=== PATIENT | male | born 1975 | race Caucasian/White ===

== ENCOUNTER 2017-12-07 09:53 | Emergency (ER) | payer OTHER ==
--- NOTE | 2017-12-07 10:25 | EDM.PDOCBH ---
ED HPI GENERAL MEDICAL PROBLEM - General Chief Complaint: Behavioral/Psych Stated Complaint: POSSIBLE PANIC ATTACK Time Seen by Provider: 12/07/17 10:24 Source of Information: Reports: Patient History Limitations: Reports: No Limitations - History of Present Illness INITIAL COMMENTS - FREE TEXT/NARRATIVE: HISTORY AND PHYSICAL: []42-year-old male presenting with concerns over increased depression and he feels shaky inside History of Present Illness: []Patient 3 years ago stopped his antidepressant medication in the last few weeks his is they've wanted a divorce concerned about seeing his children Last time he needed antidepressants was when he was working in [place]. He denies any suicidal ideations States he has no one here he spends a lot of time at the gym. Denies any use of illegal drugs Main complaint is that he's been unable to sleep for several days Review of Systems: As per history of present illness and below otherwise all systems reviewed and negative. Past medical history: As per history of present illness and as reviewed below otherwise noncontributory. Surgical history: As per history of present illness and as reviewed below otherwise noncontributory. Social history: No reported history of drug or alcohol abuse. Family history: As per history of present illness and as reviewed below otherwise noncontributory. Physical exam: Alert gentleman who has fair eye contact. A little shaky when speaking. HEENT: Atraumatic, normocehpalic, pupils reactive, negative for conjunctival pallor or scleral icterus, mucous membranes moist, throat clear, neck supple, nontender, trachea midline. Lungs: Clear to auscultation, breath sounds equal bilaterally, chest non tender. Heart: S1S2, regular, negative for clicks, rubs, or JVD. Abdomen: Soft, nondistended, nontender. Negative for masses or hepatossplenmegaly. Negative for costovertebral tenderness. Pelvis: Stable nontender. Genitourinary: Deferred. Rectal: Deferred Extremities: Atraumatic, negative for cords or calf pain. Neurovascular unremarkable. Neuro: Awake, alert, oriented. Cranial nerves II through XII unremarkable. Cerebellum unremarkable. Motor and sensory unremarkable throughout. Exam nonfocal. Diagnostics: [] Therapeutics: []Ativan Impression: []Depression Plan: []Discharge Referral to Caryn Thompson NP Remeron 15 mg Definitive disposition and diagnosis as appropriate pending reevaluation and review of above. Onset: Gradual Duration: Day(s): - Related Data Allergies Allergy/AdvReac Type Severity Reaction Status Date / Time No Known Allergies Allergy Verified 12/07/17 10:06 Home Meds: Home Meds Mirtazapine [Remeron] 15 mg PO BEDTIME #30 tab.dis 12/07/17 [Rx] Past Medical History - Past Health History Medical/Surgical History: Denies Medical/Surgical History - Infectious Disease History Infectious Disease History: Reports: None Social & Family History - Family History Family Medical History: Noncontributory - Tobacco Use Smoking Status *Q: Never Smoker - Alcohol Use Days Per Week of Alcohol Use: 3 Number of Drinks Per Day: 5 Total Drinks Per Week: 15 - Recreational Drug Use Recreational Drug Use: No ED ROS GENERAL - Review of Systems Review Of Systems: ROS reveals no pertinent complaints other than HPI. ED EXAM, BEHAVIORAL HEALTH - Physical Exam Exam: See Below (See dictation) COURSE, BEHAVIORAL HEALTH COMP - Course Vital Signs: Last Vital Signs Temp 36.6 C 12/07/17 10:07 Pulse 95 12/07/17 10:07 Resp 20 12/07/17 10:07 BP 184/97 H 12/07/17 10:07 Pulse Ox 97 12/07/17 10:07 Departure - Departure Time of Disposition: 10:36 Disposition: Home, Self-Care 01 Condition: Good Clinical Impression: Depressive disorder - Discharge Information Prescriptions: Mirtazapine [Remeron] 15 mg PO BEDTIME #30 tab.dis Referrals: PCP,None [Primary Care Provider] - Forms: ED Department Discharge Additional Instructions: The following information is given to patients seen in the emergency department who are being discharged to home. This information is to outline your options for follow-up care. We provide all patients seen in our emergency department with a follow-up referral. The need for follow-up, as well as the timing and circumstances, are variable depending upon the specifics of your emergency department visit. If you don't have a primary care physician on staff, we will provide you with a referral. We always advise you to contact your personal physician following an emergency department visit to inform them of the circumstance of the visit and for follow-up with them and/or the need for any referrals to a consulting specialist. The emergency department will also refer you to a specialist when appropriate. This referral assures that you have the opportunity for followup care with a specialist. All of these measure are taken in an effort to provide you with optimal care, which includes your followup. Under all circumstances we always encourage you to contact your private physician who remains a resource for coordinating your care. When calling for followup care, please make the office aware that this follow-up is from your recent emergency room visit. If for any reason you are refused follow-up, please contact the [facility] emergency department at and asked to speak to the emergency department charge nurse. We have notified [facility] with Barb Smith NP They will contact you with a date and time and see how this medication has been helping you and discuss that with her Return if you have any suicidal thoughts increasing depression prior to your visit
[2017-12-07] MEDS ORDERED: LORazepam 0.5 MG Tab PO ONE (10:40)
== END 2017-12-07 11:10 | disposition home or self-care (01) ==
LOC: MW.ED 09:53
DX: F32.9 Major depressive disorder, single episode, unspecified (principal)
CPT/HCPCS: 99283

== ENCOUNTER 2020-01-10 15:25 | Emergency (ER) | payer OTHER ==
[2020-01-10] MEDS ORDERED: Sodium Chloride 0.9% 10 ML Syringe FLUSH PRN (15:29)
[2020-01-10] MEDS ORDERED: Sodium Chloride 0.9% 2.5 ML Syringe FLUSH PRN (15:29)
--- NOTE | 2020-01-10 15:30 | EDM.PDOC ---
ED HPI GENERAL MEDICAL PROBLEM - General Chief Complaint: Chest Pain Stated Complaint: CHEST PAIN Time Seen by Provider: 01/10/20 15:27 Source of Information: Reports: Patient History Limitations: Reports: No Limitations - History of Present Illness INITIAL COMMENTS - FREE TEXT/NARRATIVE: 43-year-old male with a past medical history of depression presenting with chest pain and shortness of breath. Patient reports a several month history of intermittent substernal chest pain and shortness of breath. Yesterday afternoon, the patient was working out and began experiencing worsening substernal chest pain radiating to left axilla accompanied by dyspnea. Nothing makes it better or worse, pain is been constant since the onset yesterday afternoon, approximately 23 hours ago. Described as "pressure". Similar to prior episodes of chest pain over the past few months but more intense than usual. Denies any fever, cough, hemoptysis, nausea, vomiting, diaphoresis, leg swelli ng. No history of VTE, hemoptysis, leg swelling or pain, malignancy, recent long travel or immobilization or surgery. No self treatment prior to arrival. ROS: A 10-point review of systems was negative, except as noted in the HPI (or in the ROS section of this note). Past medical history: Reviewed, no additional pertinent history. Surgical history: Reviewed in system, no additional pertinent history. Social history: Reviewed in system, no additional pertinent history. Family history: Reviewed in system, no additional pertinent history. PHYSICAL EXAM Vital signs reviewed. Nursing notes reviewed. Constitutional: Awake, alert, non-distressed. Head: Normocephalic, atraumatic. Eyes: EOMI, conjunctiva normal, no discharge, no scleral icterus. Ears, Nose, Throat: External ears and nose normal, moist oral mucosa. Cardiovascular: Tachycardic, 2+ radial pulses bilaterally, 2+ femoral pulses bilaterally, capillary refill less than 2 seconds. No lower extremity edema. All extremities warm and well-perfused. RRR no MRG Pulmonary: normal work of breathing, no accessory muscle use. CTA BL Abdomen/GI: Soft, nontender, nondistended, no guarding or rigidity, no masses. Musculoskeletal: No deformities. Integumentary: Appropriate color for ethnicity, warm, dry, no pallor or jaundice, no rash. Neurologic: Alert, answering questions appropriately, normal speech, no facial droop, moving all extremities well. Psychiatric: Appropriate mood and affect, normal thought process. chest Pain Score (Numeric/FACES): 7 - Related Data Allergies Allergy/AdvReac Type Severity Reaction Status Date / Time No Known Allergies Allergy Verified 01/10/20 15:43 Home Meds: Home Meds LORazepam [Ativan] 0.5 mg PO BEDTIME 01/10/20 [History] buPROPion HCL [Wellbutrin Xl] 300 mg PO DAILY 01/10/20 [History] Past Medical History - Past Health History Medical/Surgical History: Denies Medical/Surgical History - Infectious Disease History Infectious Disease History: Reports: None Social & Family History - Family History Family Medical History: Noncontributory ED ROS GENERAL - Review of Systems Review Of Systems: See Below ED EXAM, GENERAL - Physical Exam Exam: See Below EKG INTERPRETATION EKG Interpretation Comments: 12-Lead ECG Interpretation Acquired: 3:22 PM Rhythm: Sinus tachycardia Rate: 103/min [place]: Normal Intervals: Incomplete right bundle branch block Ectopy: None ST Segments/T-Waves: ST segment depression in leads II, 3. T wave inversions in leads II, 3, aVF, V4 through 6. Interpretation: Abnormal ECG. Left atrial enlargement. Incomplete right bundle branch block. Course - Vital Signs Text/Narrative:: Differential diagnosis includes but is not limited to: ACS, pulmonary embolism, aortic dissection, acute systolic heart failure, pneumonia, pneumothorax, pericardial effusion, pleural effusion, pericarditis, endocarditis, esophageal rupture, GERD, drug-induced chest pain, chest wall pain, and many others. CBC shows a leukocytosis and erythrocytosis. D-dimer is elevated at 1.13. Creatinine elevated at 1.6. Troponin negative. Electrolytes look reassuring. Chest x-ray is clear. Given chest pain, hypoxia, and elevated d-dimer, we obtained a CT pulmonary angiogram study which showed probable subsegmental atelectasis within the dependent portions of both posterior lungs, no evidence of pulmonary embolism, and no other acute findings. We did ambulate the patient and and room air saturations were 94 to 95%. He complained of worsening lightheadedness while ambulatory. We repeated a twelve-lead EKG which still appears fairly abnormal, with persistent ST segment deviation in 2, aVF, and T wave inversions in leads II, III, aVF, and V4 through V6. Although the patient has negative coronary biomarker testing. HEART score is 2. Patient was given full dose aspirin followed by a GI cocktail. He has negative cardiac biomarker testing with 23 hours of symptoms but I am concerned by the fact that he continues to complain of lightheadedness and shortness of breath an d his low to normal pulse oximetry readings and his abnormal ECG. Low suspicion for aortic dissection, no evidence of congestive heart failure. Pulmonary imaging is not concerning for pneumonia, no evidence of a cardiac murmur by auscultation, no infectious symptoms, low suspicion for endocarditis. Low suspicion for esophageal rupture. At 6:30 PM I was informed by the patient's nurse the patient wants to sign out AGAINST MEDICAL ADVICE. I did have a [id number]-helt discussion with the patient. He wants to go home and does not want to stay overnight in the hospital on observation status. I reiterated I did recommend that he stay because he has a markedly abnormal EKG and is still complaining of feeling lightheaded, having chest pain, and shortness of breath. I did discuss the plan to trend his troponins, likely have an echocardiogram, and potential expedited follow-up with cardiology. The patient still wants to go home. I explained the risks of worsening of symptoms, morbidity, or even . The patient understands and is accepting of the risks and still wants to go home AGAINST MEDICAL ADVICE. He understands that he can come back to the ER at any point even if he just changes his mind and I encouraged him to come back if any symptoms worsen or if he develops any new concerning symptoms. We will facilitate a referral to cardiology clinic. All questions were answered prior to discharge. Last Recorded V/S: Last Vital Signs Temp 36.2 C 01/10/20 15:26 Pulse 93 01/10/20 17:35 Resp 17 01/10/20 17:10 BP 148/51 H 01/10/20 17:35 Pulse Ox 96 01/10/20 17:35 - Orders/Labs/Meds Orders: Active Orders 24 hr Category Date Time Status Cardiac Monitoring [RC] . DIRECTED Care 01/10/20 15:29 Active EKG 12 Lead [EKG Documentation Completion] [RC] STAT Care 01/10/20 16:02 Active Pulse Oximetry [RC] ASDIRECTED Care 01/10/20 15:29 Active CORONAVIRUS COVID-19 PCR PHL Stat Lab 01/10/20 18:31 Ordered TROPONIN I [CHEM] Stat Lab 01/10/20 18:37 Received Sodium Chloride 0.9% [Saline Flush] Med 01/10/20 15:29 Active 10 ml FLUSH ASDIRECTED PRN Sodium Chloride 0.9% [Saline Flush] Med 01/10/20 15:29 Active 2.5 ml FLUSH ASDIRECTED PRN Saline Lock Insert [OM.PC] Stat Oth 01/10/20 15:30 Ordered Medication Orders Sodium Chloride (Saline Flush) 2.5 ml FLUSH ASDIRECTED PRN PRN Reason: Keep Vein Open Sodium Chloride (Saline Flush) 10 ml FLUSH ASDIRECTED PRN PRN Reason: Keep Vein Open Labs: Laboratory Tests 01/10/20 01/10/20 01/10/20 Range/Units 15:39 15:39 15:39 WBC 20.68 H (4.0-11.0) K/uL RBC 6.04 H (4.50-5.90) M/uL Hgb 18.3 H (13.0-17.0) g/dL Hct 54.2 H (38.0-50.0) % MCV 89.7 (80.0-98.0) fL MCH 30.3 (27.0-32.0) pg MCHC 33.8 (31.0-37.0) g/dL RDW Std Deviation 53.6 (28.0-62.0) fl RDW Coeff of Edwin 16 H (11.0-15.0) % Plt Count 283 (150-400) K/uL MPV 10.20 (7.40-12.00) fL Neut % (Auto) 76.9 (48.0-80.0) % Lymph % (Auto) 11.9 L (16.0-40.0) % [place] % (Auto) 10.4 (0.0-15.0) % Eos % (Auto) 0.7 (0.0-7.0) % Baso % (Auto) 0.1 (0.0-1.5) % Neut # (Auto) 15.9 H (1.4-5.7) K/uL Lymph # (Auto) 2.5 H (0.6-2.4) K/uL [place] # (Auto) 2.2 H (0.0-0.8) K/uL Eos # (Auto) 0.2 (0.0-0.7) K/uL Baso # (Auto) 0.0 (0.0-0.1) K/uL Nucleated RBC % 0.0 /100WBC Nucleated RBCs # 0 K/uL D-Dimer, Quantitative 1.13 H (0.0-0.50) mg/L FEU Sodium 135 L (136-148) mmol/L Potassium 4.6 (3.5-5.1) mmol/L Chloride 101 (98-107) mmol/L Carbon Dioxide 26.9 (21.0-32.0) mmol/L BUN 12 (7.0-18.0) mg/dL Creatinine 1.6 H (0.8-1.3) mg/dL Est Cr Clr Drug Dosing 61.47 mL/min Estimated GFR (MDRD) 47.4 ml/min Glucose 85 (74-106) mg/dL Calcium 9.6 (8.5-10.1) mg/dL Total Bilirubin 0.6 (0.2-1.0) mg/dL AST 31 (15-37) IU/L ALT 41 (14-63) IU/L Alkaline Phosphatase 49 (46-116) U/L Troponin I < 0.050 (0.000-0.056) ng/mL Total Protein 7.9 (6.4-8.2) g/dL Albumin 3.3 L (3.4-5.0) g/dL Globulin 4.6 H (2.6-4.0) g/dL Albumin/Globulin Ratio 0.7 L (0.9-1.6) Meds: Medications Generic Name Dose Route Start Last Admin Trade Name Freq PRN Reason Stop Dose Admin Sodium Chloride 2.5 ml 01/10/20 15:29 Saline Flush FLUSH ASDIRECTED PRN Keep Vein Open Sodium Chloride 10 ml 01/10/20 15:29 Saline Flush FLUSH ASDIRECTED PRN Keep Vein Open Discontinued Medications Generic Name Dose Route Start Last Admin Trade Name Damien PRN Reason Stop Dose Admin Aspirin 325 mg 01/10/20 21:00 Aspirin PO BEDTIME JEREMIAH Aspirin 325 mg 01/10/20 15:46 01/10/20 15:49 Aspirin PO 01/10/20 15:47 325 mg ONETIME STA Administration Al Hydroxide/Mg Hydroxide 15 0 ml 01/10/20 18:05 01/10/20 18:37 ml/ Lidocaine HCl 5 ml PO 01/10/20 18:06 1 each ONETIME ONE Administration Lactated Ringer's 1,000 mls @ 999 mls/hr 01/10/20 15:46 01/10/20 15:49 Ringers, Lactated IV 01/10/20 16:46 999 mls/hr .BOLUS ONE Administration Departure - Departure Time of Disposition: 18:31 Disposition: Against Medical Advice 07 Condition: Good Clinical Impression: Atypical chest pain, Abnormal ECG, Lightheadedness Dyspnea Qualifiers: Dyspnea type: unspecified Qualified Code(s): R06.00 - Dyspnea, unspecified Referrals: [facility] [Provider Group] - 3 Days (For follow-up of chest pain and abnormal EKG.) Forms: ED Department Discharge Additional Instructions: We did recommend hospitalization overnight given that you have an abnormal electrocardiogram and ongoing chest pain, shortness of breath, and lightheadedness. At this point you are choosing to leave the hospital AGAINST MEDICAL ADVICE. You understand that your symptoms could worsen or you could . You should come back to the emergency department immediately if you are feeling worse. You can always come back to the emergency department even if you change your mind and want to stay in the hospital overnight. I would like for you to follow-up with the cardiology clinic in the next few days for reevaluation and evaluation of your abnormal EKG. The following information is given to patients seen in the emergency department who are being discharged. This information is to outline your options for follow-up care. We provide all patients seen in our emergency department with a follow-up referral. The need for follow-up, as well as the timing and circumstances, are variable depending upon the specifics of your emergency department visit. If you don't have a primary care physician on staff, we will provide you with a referral. We always advise you to contact your personal physician following an emergency department visit to inform them of the circumstance of the visit and for follow-up with them and/or the need for any referrals to a consulting specialist. The emergency department will also refer you to a specialist when appropriate. This referral assures that you have the opportunity for follow-up care with a specialist. All of these measure are taken in an effort to provide you with optimal care, which includes your follow-up. Under all circumstances we always encourage you to contact your private physician who remains a resource for coordinating your care. When calling for follow-up care, please make the office aware that this follow-up is from your recent emergency room visit. If for any reason you are refused follow-up, please contact the [facility] Emergency Department at and asked to speak to the emergency department charge nurse. If you do not have a primary care physician that is caring for you, you can contact these clinics below to set up an appointment to establish care: [facility] - Primary Care [address] [place], [place] [id number] [facility] [address] [place] [address] Sepsis Event Note (ED) - Focused Exam Vital Signs: Vital Signs Temp Pulse Resp BP Pulse Ox 01/10/20 17:35 93 148/51 H 96 01/10/20 17:10 95 17 96 01/10/20 15:26 36.2 C 106 H 18 156/92 H 94 L - My Orders Last 24 Hours: My Active Orders 01/10/20 15:29 Cardiac Monitoring [RC] . DIRECTED Pulse Oximetry [RC] ASDIRECTED Sodium Chloride 0.9% [Saline Flush] 10 ml FLUSH ASDIRECTED PRN Sodium Chloride 0.9% [Saline Flush] 2.5 ml FLUSH ASDIRECTED PRN 01/10/20 15:30 Saline Lock Insert [OM.PC] Stat 01/10/20 16:02 EKG 12 Lead [EKG Documentation Completion] [RC] STAT 01/10/20 18:31 CORONAVIRUS COVID-19 PCR PHL Stat 01/10/20 18:37 TROPONIN I [CHEM] Stat - Assessment/Plan Last 24 Hours: My Active Orders 01/10/20 15:29 Cardiac Monitoring [RC] . DIRECTED Pulse Oximetry [RC] ASDIRECTED Sodium Chloride 0.9% [Saline Flush] 10 ml FLUSH ASDIRECTED PRN Sodium Chloride 0.9% [Saline Flush] 2.5 ml FLUSH ASDIRECTED PRN 01/10/20 15:30 Saline Lock Insert [OM.PC] Stat 01/10/20 16:02 EKG 12 Lead [EKG Documentation Completion] [RC] STAT 01/10/20 18:31 CORONAVIRUS COVID-19 PCR PHL Stat 01/10/20 18:37 TROPONIN I [CHEM] Stat
[2020-01-10] MEDS ORDERED: Aspirin 325 MG Tab PO STA (15:46)
[2020-01-10] MEDS ORDERED: Lactated Ringers 1,000 ML IV ONE (15:46)
[2020-01-10 16:12] LABS: BLOOD UREA NITROGEN,BUN 12 mg/dL (7.0-18.0); CARBON DIOXIDE,CO2 26.9 mmol/L (21.0-32.0); CHLORIDE,CL 101 mmol/L (98-107); GLUCOSE RANDOM 85 mg/dL (74-106); POTASSIUM,K 4.6 mmol/L (3.5-5.1); SODIUM,NA 135 mmol/L (136-148)
--- NOTE | 2020-01-10 17:03 | CR ---
Chest: AP view of the chest was obtained. Comparison: No prior chest x-ray is available. Heart size and mediastinum are normal. Lungs are clear with no acute parenchymal change. Old healed right clavicle fracture appears to be present. Bony structures are grossly intact. Impression: 1. Nothing acute is seen on AP chest x-ray. Diagnostic code #2 This report was dictated in MDT
--- NOTE | 2020-01-10 17:12 | CT ---
CT chest Technique: Multiple axial sections were obtained from above the lung apices inferiorly through the lung bases. Intravenous contrast was utilized. Study performed as a pulmonary angiogram protocol. Comparison: Prior chest x-ray performed earlier on the same day (4:48 PM). Findings: Pulmonary arteries are well opacified. No filling defects are seen to indicate pulmonary embolism. Aorta shows no aneurysm. No mediastinal or hilar adenopathy is seen. No pericardial thickening is seen. Visualized portions of the upper abdominal structures show nothing acute. Lung window settings were reviewed which shows slight posterior groundglass appearance most likely due to subsegmental atelectasis. No acute parenchymal change is suspected within either lung. Bone window settings were reviewed which show no acute osseous finding. Impression: 1. Probable subsegmental atelectasis within the dependent portions of both posterior lungs. 2. No findings of pulmonary embolism. 3. Nothing acute is suspected. Diagnostic code #2 This report was dictated in MDT
[2020-01-10] MEDS ORDERED: Alum Hydrox/Mag Hydrox/Simeth 15 ML, Lidocaine 2% 5 ML PO ONE ×2 (18:05)
[2020-01-10] MEDS ORDERED: Iopamidol 755 MG/ML 50 ML Bottle IV STA (18:59)
[2020-01-10] MEDS ORDERED: Aspirin 325 MG Tab PO SCH (21:00)
== END 2020-01-10 18:59 | disposition left against medical advice (07) ==
LOC: MW.ED 15:25
DX: R07.89 Other chest pain (principal); R94.31 Abnormal electrocardiogram [ECG] [EKG]; R42 Dizziness and giddiness; R06.02 Shortness of breath; Z79.899 Other long term (current) drug therapy
CPT/HCPCS: 36415; 71045; 71275; 80053; 84484; 85025; 85379; 93005; 96360; 99285; A9270; J7120; Q9967

== ENCOUNTER 2021-10-17 20:23 | Emergency (ER) | payer BC ==
[2021-10-17] MEDS ORDERED: Sodium Chloride 0.9% 1,000 ML IV ONE (20:56)
[2021-10-17] MEDS ORDERED: Ketorolac 30 MG/ML SDV IVPUSH ONE (20:56)
[2021-10-17 21:45] LABS: CARBON DIOXIDE,CO2 27.9 mmol/L (21.0-32.0); POTASSIUM,K 4.3 mmol/L (3.5-5.1)
[2021-10-17] MEDS ORDERED: Morphine 2 MG/ML SYRINGE IVPUSH ONE (22:43)
[2021-10-17] MEDS ORDERED: Morphine 4 MG/ML VIAL IVPUSH ONE (23:21)
[2021-10-17] MEDS ORDERED: cefTRIAXone 500 MG in Lidocaine 1% 1 ML IM ONE (23:22)
[2021-10-17] MEDS ORDERED: Azithromycin 250 MG Tab PO STA (23:22)
[2021-10-18 02:49] LABS: C. TRACHOMATIS BY PCR NOT DETECTED; N. GONORRHOEAE BY PCR NOT DETECTED
== END 2021-10-18 01:10 | disposition home or self-care (01) ==
LOC: MW.ED 20:23
DX: N50.811 Right testicular pain (principal); I10 Essential (primary) hypertension
CPT/HCPCS: 36415; 74176; 76870; 80053; 81003; 85025; 87491; 87591; 93976; 96374; 96375; 96376; 99284; A9270; J0696; J1885; J2270; J3360; J7030

== ENCOUNTER 2022-06-20 07:06 | Emergency (ER) | payer BC ==
[2022-06-20 07:47] LABS: CARBON DIOXIDE,CO2 26.7 mmol/L (21.0-32.0); POTASSIUM,K 4.9 mmol/L (3.5-5.1)
[2022-06-20 08:06] LABS: CORONAVIRUS COVID-19 NAA NEGATIVE (NEGATIVE); INFLUENZA A NAA NEGATIVE (NEGATIVE); INFLUENZA B NAA NEGATIVE (NEGATIVE); RESPIRATORY SYNCYTIAL VIR NAA POSITIVE (NEGATIVE)
[2022-06-20] MEDS ORDERED: Alum Hydro/Mag Hydro/Simeth XS 15 ML, Lidocaine 2% 5 ML PO ONE ×2 (08:25)
[2022-06-20] MEDS ORDERED: hydrOXYzine HCl 25 MG Tab PO ONE (08:26)
== END 2022-06-20 09:52 | disposition home or self-care (01) ==
LOC: MW.ED 07:06
DX: R06.02 Shortness of breath (principal); R53.83 Other fatigue; R42 Dizziness and giddiness; B97.4 Respiratory syncytial virus as the cause of diseases classified elsewhere; I10 Essential (primary) hypertension; Z79.899 Other long term (current) drug therapy; Z20.822 Contact with and (suspected) exposure to COVID-19
CPT/HCPCS: 0241U; 36415; 71045; 80053; 84484; 85025; 93005; 99285; A9270; 93010; 99283

== ENCOUNTER 2023-06-29 08:56 | Emergency (ER) | payer BC ==
[2023-06-29] MEDS ORDERED: Sodium Chloride 0.9% 1,000 ML IV ONE ×2 (09:10→10:24)
[2023-06-29] MEDS ORDERED: Meclizine 25 MG Tab PO ONE (09:11)
[2023-06-29] MEDS ORDERED: Dexamethasone 10 MG/ML SDV IVPUSH ONE (09:46)
[2023-06-29 09:53] LABS: HEMATOCRIT 52.2 % (42.0-52.0); HEMOGLOBIN 17.8 g/dL (14.0-18.0); MEAN CORPUSCULAR HEMOGLOBIN 29.9 pg (28.0-32.0); MEAN CORPUSCULAR HGB CONC 34.1 g/dL (32.0-36.0); MEAN CORPUSCULAR VOLUME 87.7 fL (83.0-99.0); MEAN PLATELET VOLUME 9.9 fL (9.4-12.4); PLATELET COUNT,PLT 211 K/uL (150-400); RED BLOOD CELL COUNT 5.95 M/uL (4.52-5.90); WHITE BLOOD CELL COUNT,WBC 10.67 K/uL (3.9-11.3)
[2023-06-29 10:20] LABS: ALBUMIN 3.4 g/dL (3.4-5.0); BILIRUBIN TOTAL 0.5 mg/dL (0.2-1.0); CALCIUM 9.7 mg/dL (8.5-10.1); CARBON DIOXIDE,CO2 28.3 mmol/L (21.0-32.0); CREATININE 1.2 mg/dL (0.8-1.3); EST CRCL DRUG DOSING (CG) 78.58 mL/min; MAGNESIUM 2.1 mg/dL (1.8-2.4); POTASSIUM,K 4.8 mmol/L (3.5-5.1); PROTEIN TOTAL,TP 6.9 g/dL (6.4-8.2)
[2023-06-29 10:25] LABS: BASOPHILS ABSOLUTE MAN 0.11 K/uL (0.00-0.20); BASOPHILS PERCENT MAN 1 % (0-1); EOSINOPHILS ABSOLUTE MAN 0.32 K/uL (0.00-0.45); EOSINOPHILS PERCENT MAN 3 % (0-6); LYMPHOCYTES ABSOLUTE MAN 0.96 K/uL (1.00-4.80); LYMPHOCYTES PERCENT MAN 9 % (24-44); MONOCYTES ABSOLUTE MAN 1.71 K/uL (0.00-0.80); MONOCYTES PERCENT MAN 16 % (0-8); SEG NEUTROPHILS ABSOLUTE MAN 7.58 K/uL (1.80-7.70); SEG NEUTROPHILS PERCENT MAN 71 % (41-71)
[2023-06-29 10:52] LABS: CORONAVIRUS COVID-19 NAA NEGATIVE (NEGATIVE); INFLUENZA A NAA POSITIVE (NEGATIVE); INFLUENZA B NAA NEGATIVE (NEGATIVE)
== END 2023-06-29 11:33 | disposition home or self-care (01) ==
LOC: MW.ED 08:56
DX: J11.1 Influenza due to unidentified influenza virus with other respiratory manifestations (principal); M62.82 Rhabdomyolysis; I10 Essential (primary) hypertension; Z79.899 Other long term (current) drug therapy; Z20.822 Contact with and (suspected) exposure to COVID-19
CPT/HCPCS: 0240U; 36415; 71045; 80053; 82550; 83735; 84484; 85025; 87651; 93005; 96361; 96374; 99284; A9270; J1100; J7030

== ENCOUNTER 2023-09-07 06:52 | Emergency (ER) | payer BC ==
[2023-09-07] MEDS: Lidocaine 1% 5 ML VIAL INJECT ONE (07:59)
[2023-09-07] MEDS: Ibuprofen 600 MG Tab PO ONE (07:59)
[2023-09-07] MEDS: Sulfamethoxazole/Trimethoprim 800-160 MG Tab PO ONE (07:59)
== END 2023-09-07 09:35 | disposition home or self-care (01) ==
LOC: MW.ED 06:52
DX: L02.413 Cutaneous abscess of right upper limb (principal); R55 Syncope and collapse; I10 Essential (primary) hypertension; Z75.8 Other problems related to medical facilities and other health care; Z86.16 Personal history of COVID-19; Z79.899 Other long term (current) drug therapy
CPT/HCPCS: 10060; 99282; A9270; 99283; J3490

== ENCOUNTER 2024-10-15 18:57 | Emergency (ER) | payer BC ==
[2024-10-15] MEDS: Tetracaine HCl/PF 0.5% 4 ML Bottle EYEBOTH ONE (19:10)
== END 2024-10-15 21:05 | disposition home or self-care (01) ==
LOC: MW.ED 18:57
DX: T26.92XA Corrosion of left eye and adnexa, part unspecified, initial encounter (principal); I10 Essential (primary) hypertension; Z75.3 Unavailability and inaccessibility of health-care facilities; Z79.899 Other long term (current) drug therapy
CPT/HCPCS: 99283; J3490